=== PATIENT | male | born 1970 | race Caucasian/White ===

== ENCOUNTER 2016-10-31 18:28 | Emergency (ER) | payer OTHER ==
[~2016-10-31] VITALS: Ht 180.3 cm; Wt 77.1 kg
[~2016-10-31 18:28] MED LIST: ACET-2605 PO; BUDE10.2 INH; LOPE1LIQ56 PO; OMEP20TA20 PO; feosol PO
--- NOTE | 2016-10-31 18:46 | NUR ---
PT IS IN ROOM #2A. DR CAPPS EVALUATED THE PT.
[2016-10-31] MEDS ORDERED: KETOROLAC TROMETHAMINE 60 MG INJ IM ONE ×2 (19:30→19:39)
--- NOTE | 2016-10-31 19:36 | NUR ---
RECEIVED REPORT FROM DAYSHIFT NURSE, PT RESTING IN BED, ALERT, ORIENTED X 4, NO RESP DISTRESS NOTED OR REPORTED UPON ASSESSMENT...
--- NOTE | 2016-10-31 19:38 | NUR ---
Patient discharged to home in stable conditon. Written and verbal after care instructions given. Patient verbalizes understanding of instructions. pt walked out of ER unassisted with belongings at side...
[2016-10-31 19:42] VITALS: BP 123/97
== END 2016-10-31 19:45 | disposition home or self-care (01) ==
LOC: ER 18:28
DX: G89.29 Other chronic pain (principal); M54.5 Low back pain; J44.9 Chronic obstructive pulmonary disease, unspecified; F17.200 Nicotine dependence, unspecified, uncomplicated; Z98.890 Other specified postprocedural states
CPT/HCPCS: A4663; J1885

== ENCOUNTER 2017-01-07 21:02 | Emergency (ER) | payer OTHER ==
[~2017-01-07] VITALS: Ht 182.9 cm; Wt 79.4 kg
[~2017-01-07 21:02] MED LIST changes: -BUDE10.2 INH; -feosol PO
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
--- NOTE | 2017-01-07 21:33 | NUR ---
Pt remain alert, responsive as he received Torpdol 30mg IM as ordered for back paIN. His care continue as he is been monitor closely.
[2017-01-07 22:00] VITALS: BP 130/90
--- NOTE | 2017-01-07 22:01 | NUR ---
Pt is been discharge to home with discharge instructions given for Hip pain and prescription for [place] 5mg-325mg po and Soma 350mg po as he remain stable.
== END 2017-01-07 22:05 | disposition home or self-care (01) ==
LOC: ER 21:03
DX: G89.29 Other chronic pain (principal); M54.5 Low back pain; M25.551 Pain in right hip; J44.9 Chronic obstructive pulmonary disease, unspecified; F17.200 Nicotine dependence, unspecified, uncomplicated
CPT/HCPCS: A4663; J1885

== ENCOUNTER 2022-04-05 05:01 | Emergency (ER) | END 2022-04-05 08:30 | disposition home or self-care (01) | DX: M54.9 Dorsalgia, unspecified (principal); J84.10 Pulmonary fibrosis, unspecified; R60.9 Edema, unspecified; J43.9 Emphysema, unspecified | CPT/HCPCS: 99284; 71250; 80076; 80048; 83735; 85025; 85651; 36415; 71101; 96372 ×2; J1885; J1170 ×2 ==

== ENCOUNTER 2022-04-05 11:29 | Emergency (ER) | payer OTHER ==
[~2022-04-05 11:29] MED LIST changes: +CEPH500C2 PO; +HYDR-3980 PO
[2022-04-05] MEDS ORDERED: HYDR-3980 PO (11:32)
--- NOTE | 2022-04-05 11:40 | NUR ---
Patient returned a/o x 4. NAD noted. Pt stated that he was unable to fill prescription at [address] Colindres aware.
--- NOTE | 2022-04-05 11:50 | NUR ---
Dr. Colindres filled prescription digitally.
== END 2022-04-05 11:55 | disposition left against medical advice (07) ==
LOC: ER 11:29
DX: Z53.21 Procedure and treatment not carried out due to patient leaving prior to being seen by health care provider (principal); Z76.0 Encounter for issue of repeat prescription